=== PATIENT | female | born 1985 | race Caucasian/White ===

== ENCOUNTER 2016-11-01 17:56 | Emergency (ER) | payer SELFPAY ==
--- NOTE | 2016-11-14 03:57 | ER ---
ADMIT: 11/01/2016 RM/LOC: ER [facility] MR#: [id number] [address] FATIMAH [place] [address] Emergency Room Report SEX: F AGE: 31 : 1985 DATE: 11/01/2016 CHIEF COMPLAINT: Left knee injury. HISTORY OF PRESENT ILLNESS: This is a pleasant 31-year-old female, who presents today after falling at her home. The patient states she was going up a flight of stairs when she tripped and fell on her left knee. At present, the patient presents with a 2 cm laceration just inferior to her left knee as well as significant anterior tibial pain. The patient was able to bear weight and ambulate to her bed. She states she has some numbness and tingling into her distal extremities. Denies any neck pain, headache, recent illness, fever, chest pain, shortness of breath, nausea, or vomiting. Does have a past medical history significant for asthma and PCOS. COURSE IN THE EMERGENCY ROOM: The patient was seen and examined, significant for 2 cm laceration to the left knee as well as some bony tenderness across the anterior tibia and anterior aspect of the knee. Did get a two view x-ray, negative for any acute fracture or dislocation. She does have some overlying contusions over the left knee and abrasions. PROCEDURE NOTE: The laceration is a 2 cm linear laceration just inferior to the pole of patella on the left knee. The wound was anesthetized using 5 mL of lidocaine. After anesthesia was achieved, the wound was cleaned with Betadine x3. It was irrigated with saline. Wound was explored to the base. No obvious involvement of the patellar tendon, just into the subcutaneous fat. The wound was repaired with four 4-0 Prolene's. The wound edges were well everted. The repair was covered with a bandage. IMPRESSION: 1. Laceration, left anterior tibia inferior to the knee. 2. Left knee abrasion. 3. Left anterior knee contusion. ADMIT: 11/01/2016 RM/LOC: ER [facility] MR#: [id number] [address] [place] [address] Emergency Room Report SEX: F AGE: 31 : 1985 DISPOSITION: The patient was to do activity as tolerated. She will continue her home medications. Return with any worsening signs or symptoms or follow up with her primary care provider. Use Tylenol or Motrin as needed for pain. She should apply ice as needed for pain. She should keep the wound clean and dry, keep it covered. She should have the sutures removed in 7 days. If she has any other questions or concerns, she should follow up with primary care provider. She was concerned about returning to work tomorrow as she works as a REHABILITATION SERVICES AIDE at the [employer]. I said she should be able to work given her injuries. She was provided a note stating she was in the ER. Questions were sought and answered to the best of my ability and to the patient's satisfaction. She was discharged in stable condition. ALICIA Durand / Jam Peña MD / mini JOB #: [id number] CC: Tae Landin MD, Attending Physician Jesus Jerry MD, Family Physician
== END 2016-11-01 19:26 | disposition home or self-care (01) ==
LOC: ER 17:56
PROC: 0HQLXZZ Repair Left Lower Leg Skin, External Approach (ICD-10-PCS; principal; 2016-11-01)
DX: S81.012A Laceration without foreign body, left knee, initial encounter (principal); Z23 Encounter for immunization; W18.09XA Striking against other object with subsequent fall, initial encounter; Y92.009 Unspecified place in unspecified non-institutional (private) residence as the place of occurrence of the external cause